=== PATIENT | male | born 1990 | race Caucasian/White ===

== ENCOUNTER 2016-08-31 17:50 | Emergency (ER) | payer OTHER ==
--- NOTE | ~2016-08-31 | CT71 ---
[facility] A Service of [facility] / [facility] RADIOLOGY TEXT RESULTS PATIENT: ERA BARRY LOCATION: SED : [birth year] UNIT #: [id number] AGE: [address]: Phill Phillips MD SEX: M ORDER DR: [id number] [place] [id number] E MR#: [id number] #: [id number] NAME: ERA BARRY : 1990 SEX: M STUDY DATE/TIME: 08/31/2016 18:11 UNIT: SED ROOM: STUDY DESCRIPTION: CT Head Wo Contrast Attending Physician: Phill Phillips M.D. Ordering Physician: Konstantin Palma M.D. Primary Care Physician: Karthikeyan Cunningham M.D. MEDICAL IMAGING REPORT This report is preliminary unless electronic signature is present. EXAM CT brain without contrast. HISTORY Fell and hit head and face today. Pain. TECHNIQUE This CT exam was performed with one or more of the following radiation dose reduction techniques: automatic exposure control, adjustment of mA and/or kV according to patient size, and iterative reconstruction. FINDINGS CT brain without contrast demonstrates a 2.5 cm retention cyst in the posterior right maxillary sinus, partly visualized. No intracranial hemorrhage, mass or edema. No midline shift or ventricular dilatation or extraaxial fluid collection. IMPRESSION 1. Negative CT brain. 2. Retention cyst in the posterior right maxillary sinus, partly visualized measuring approximately 2.5 cm. 3. No fracture is identified. Dictated by... Abner Barnhart M.D. THIS IS AN ELECTRONICALLY VERIFIED REPORT Abner Barnhart M.D. at 08/31/2016 11:45 PM JORDI/viktor TD: 08/31/2016 20:54 [facility] A Service of [facility] / [facility] RADIOLOGY TEXT RESULTS PATIENT: ERA BARRY LOCATION: SED : [birth year] UNIT #: [id number] AGE: [address]: Phill Phillips MD SEX: M ORDER DR: JOB #: [id number] MEDICAL IMAGING REPORT Page 1 of 1
[~2016-08-31 17:50] MED LIST: DEPAKOTE PO; DIASTAT10 MG PR; FLORINEF ACETA0.1 MG PO; FLUDROCORTISONE PO; KEPPRA750 MG PO; TRILEPTAL PO; VOLTAREN75 MG PO; ZOFRAN PO
[2016-08-31 18:24] LABS: BUN/CREATININE RATIO 11.42; CREATININE SERUM 1.4 mg/dL (0.6-1.4); GLOM FILT RATE Estimated 69.4 mL/min (>60); POTASSIUM 3.9 mmol/L (3.5-5.1)
[2016-08-31 19:05] LABS: URINE SOURCE CLEAN CATCH
[2016-08-31 19:07] LABS: URINE APPEARANCE CLEAR; URINE BILIRUBIN NEG (NEG); URINE BLOOD TRACE-LYSED (NEG); URINE COLOR YELLOW; URINE GLUCOSE NEG (NORM); URINE KETONE TRACE (NEG); URINE LEUKOCYTE ESTERASE NEG (NEG); URINE NITRATE NEG (NEG); URINE PROTEIN 2+ (NEG); URINE SPECIFIC GRAVITY >=1.030 (1.003-1.035)
[2016-08-31 19:08] LABS: MICRO INDICATED? YES; URINE WBC 0-2 /[HPF] (0-5)
[2016-08-31 19:09] LABS: CULTURE INDICATED? NO; URINE BACTERIA NEG (NEG); URINE MUCUS PRESENT; URINE SQUAMOUS EPITHELIAL CELL FEW /[HPF]; URINE TRANSITIONAL EPI CELLS FEW /[HPF]
[2016-08-31] MEDS ORDERED: ZOFRANODT PO (20:20)
== END 2016-08-31 20:33 | disposition home or self-care (01) ==
LOC: SED 17:50
PROVIDERS: Emergency Medicine
DX: S09.90XA Unspecified injury of head, initial encounter (principal); S01.21XA Laceration without foreign body of nose, initial encounter; B34.9 Viral infection, unspecified; G40.909 Epilepsy, unspecified, not intractable, without status epilepticus; W19.XXXA Unspecified fall, initial encounter; Y92.009 Unspecified place in unspecified non-institutional (private) residence as the place of occurrence of the external cause
CPT/HCPCS: 36415; 70450; 80048; 81003; 87880; 96374; 96375; 99284; J0696; J2405